=== PATIENT | female | born 1970 | race African-American/Black ===

== ENCOUNTER 2019-04-05 04:08 | Emergency (ER) | payer MEDICAID ==
[~2019-04-05] VITALS: Ht 162.6 cm; Wt 62.0 kg
[2019-04-05] MEDS ORDERED: KETOROLAC 30MG/ML VIAL IV ONE (05:00)
[2019-04-05 06:39] VITALS: BP 134/81
== END 2019-04-05 06:40 | disposition home or self-care (01) ==
LOC: ER 04:08
DX: M54.9 Dorsalgia, unspecified (principal)
CPT/HCPCS: 96374; 99283; J1885